=== PATIENT | female | born 1980 | race Caucasian/White ===

== ENCOUNTER 2017-10-17 19:33 | Emergency (ER) | payer OTHER ==
[~2017-10-17] VITALS: Ht 170.2 cm; Wt 78.0 kg
[2017-10-17 19:36] VITALS: TEMP 36.9; Ht 170.2 cm; Wt 78.0 kg
[2017-10-17] MEDS ORDERED: RANITIDINE HCL 150 MG TAB PO STA (19:40)
--- NOTE | 2017-10-17 19:48 | EMERGENCY ROOM VISIT NOTE ---
History Report prepared by Sole: Jerzy Weller Under the Supervision of: Dr. Lalo Bragg M.D. First contact with patient: 19:35 Chief Complaint: ALLERGIC REACTION Stated Complaint: Allergic reaction after MRI injection Nursing Triage Summary: pt had MRI with contrast at 1900 today, itching and rash noted generalized. History of Present Illness The patient is a 37 year old female who presents to the Emergency Room following a allergic reaction that occurred roughly 30 minutes prior to arrival. The patient states that she was here in the hospital this evening for a MRI. The patient has had a number of MRI's in the past to evaluate her Neuroendocrine Cancer. Her MRI today was screening her kidneys and pancreas. She believes that the contrast that was used was different than what she has had in the past because she did not experience the usual metallic taste, respiratory trouble, or "peeing pants" sensation that she experienced commonly in the past. Shortly after received the contrast she began to break out in hives and get itchy. She is still currently itching and has hives across her back. The patient notes that she does note tolerate Benadryl well. She denies any shortness of breath and has no further complaints at this time. 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 Review of Systems See HPI for pertinent positives & negatives. A total of 10 systems reviewed and were otherwise negative. Past Medical & Surgical Medical Problems: (1) Cancer Family History No pertinent family history recorded. Social History Smoking Status: Never Smoker Smokeless Tobacco Use: No Drug Use: none Current/Historical Medications Scheduled Acyclovir (Acyclovir), 200 MG PO DAILY Montelukast Sodium (Singulair), 10 MG PO DAILY Prednisone (Prednisone), 2 TAB PO DAILY Ranitidine (Zantac), 150 MG PO BID Scheduled PRN Fluticasone Prop/Salmeterol (Advair Diskus 500-50 Mcg/Dose), 1 DOSE INH DIRECTED PRN for Shortness of Breath Allergies Coded Allergies: Cephalexin (Verified Allergy, Severe, ANAPHYLAXIS, 10/17/17) Diphenhydramine (Verified Allergy, Intermediate, SEE COMMENT, 10/17/17) PT STATES "WHEN I TOOK BENADRYL, AT NIGHT, EMPTIED REFRIGERATOR AND LINED UP CONTENTS ON FLOOR, ALSO TOOK EVERYTHING OUT OF CAR AND LINED UP ON SIDE WALK". PT HAS NO MEMORY OF DOING THIS. Gadobutrol (Verified Allergy, Mild, HIVES, 10/17/17) Physical Exam Vital Signs Date Time Temp Pulse Resp B/P (MAP) Pulse Ox O2 Delivery O2 Flow Rate FiO2 10/17/17 21:02 64 16 117/74 98 10/17/17 19:36 36.9 70 22 148/92 98 Room Air 10/17/17 19:34 98 Room Air Physical Exam GENERAL: Patient is in no acute distress. HEENT: No acute trauma, normocephalic atraumatic, mucous membranes moist, no nasal congestion, no scleral icterus. There is no uvular edema. NECK: No stridor, no adenopathy, no meningismus, trachea is midline. LUNGS: Clear to auscultation bilaterally, no wheeze, no rhonchi, breath sounds equal. HEART: Without murmurs gallops or rubs, regular rate and rhythm. ABDOMEN: Soft, nontender, bowel sounds positive, no hernias, no peritonitis. EXTREMITIES: No cyanosis or edema, full range of motion of all the joints without pain or difficulty, no signs for acute trauma. NEUROLOGIC: Oriented x 3, no acute motor or sensory deficits, no focal weakness. SKIN: There is no Jaundice. There are erythematous raised patchy lesions consistent with urticaria across her body. She is itching. Medical Decision & Procedures Medications Administered Medications (Trade) Dose Ordered Sig/Cleve Route Start Time Stop Time Status Last Admin Dose Admin Ranitidine HCl (zANTac TAB) 150 mg NOW STAT PO 10/17/17 19:40 10/17/17 19:42 DC 10/17/17 19:47 150 MG Prednisone (PredniSONE TAB) 60 mg NOW STAT PO 10/17/17 19:40 10/17/17 19:42 DC 10/17/17 19:46 60 MG ED Course 1937: The patient was evaluated in room A10. A complete history and physical exam was performed. 1939: Ordered Prednisone 60 mg PO, zANTac TAB 150 mg PO. 2046: Reevaluated the patient. Discussed results and discharge instructions: She verbalized understanding and agreement. The patient is ready for discharge. Medical Decision Differential Diagnosis includes; Hives, acute allergic reaction, uvular edema, wheezing, and, anaphylaxis. The patient presents with hives after receiving MRI dye. She has received this type of dye in the past without incident. She is not short of breath, she has no throat closing sensation. She states that she cannot tolerate Benadryl. The patient was given oral Zantac and oral prednisone. She was watched for some time, her hives resolved. She felt improved and was asking for discharge. I do think this is reasonable. I will discharge her with a few days of Zantac and prednisone. If she has any worsening of her situation, she will return. Medication Reconcilliation Current Medication List: was personally reviewed by me Blood Pressure Screening Patient's blood pressure: Normal blood pressure Blood pressure disposition: Did not require urgent referral Impression Primary Impression: Hives Additional Impression: Allergic reaction Scribe Attestation The scribe's documentation has been prepared under my direction and personally reviewed by me in its entirety. I confirm that the note above accurately reflects all work, treatment, procedures, and medical decision making performed by me. Departure Information Dispostion Home / Self-Care Prescriptions Prednisone (Prednisone) 20 Mg Tab 2 TAB PO DAILY for 3 Days, #6 TAB Prov: Lalo Bragg M.D. 10/17/17 Ranitidine (Zantac) 150 Mg Tab 150 MG PO BID for 3 Days, #6 TAB Prov: Lalo Bragg M.D. 10/17/17 Referrals No Doctor, Assigned (PCP) Forms HOME CARE DOCUMENTATION FORM, IMPORTANT VISIT INFORMATION Patient Instructions My [facility] Additional Instructions zantac 2x per day for 3 days prednisone daily for 3 days return for any worsening symptoms as we discussed Problem Qualifiers
[2017-10-17] MEDS ORDERED: ADVIN50050 INH (20:10)
[2017-10-17] MEDS ORDERED: MONT1TAB3 PO (20:10)
[2017-10-17] MEDS ORDERED: ACYC-56 PO (20:10)
[2017-10-17] MEDS ORDERED: ZNTT/150 PO (20:51)
[2017-10-17] MEDS ORDERED: PRED20TA PO (20:51)
[2017-10-17 21:02] VITALS: BP 117/74; PULSE 64; O2SAT 98
== END 2017-10-17 21:03 | disposition home or self-care (01) ==
LOC: EDBD 19:33 → C.EDA 19:34
DX: T78.40XA Allergy, unspecified, initial encounter (principal); Z91.041 Radiographic dye allergy status; Z88.1 Allergy status to other antibiotic agents; Z88.6 Allergy status to analgesic agent

== ENCOUNTER → 2017-10-17 | Outpatient (CLI) | payer OTHER ==
[~2017-10-17] MED LIST: ACYC-56 PO; ADVIN50050 INH; GADAVIST IV PRN; MONT1TAB3 PO; PRED20TA PO; RANI150T85 PO
--- NOTE | 2017-10-19 14:43 | DIAGNOSTIC IMAGING REPORT ---
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 COMPARISON STUDY: No priors.. TECHNIQUE: MRI of the abdomen is performed transverse T1 and T2-weighted sequences in the axial and coronal planes. Contrast enhanced sequences were acquired following the IV administration of 6.5 cc of Gadavist. The patient developed hives following the injection and was sent to the emergency department for further assessment.. Subtraction imaging was performed. MRCP images with 3-D reconstructions were obtained and assessed. FINDINGS: Lower chest: No pleural effusion is identified. The heart is normal in size. Liver: The liver is normal in size, contour, and signal intensity. No intrahepatic biliary ductal dilatation is seen. The hepatic veins and portal veins are patent. No enhancing liver lesions identified. Gallbladder: The gallbladder is normal in appearance. No gallstones are identified. The common bile duct is normal in caliber and measures up to 4 mm. No filling defects are identified to suggest choledocholithiasis. The pancreatic duct is normal in caliber. Spleen: Normal in size and signal intensity. Pancreas: The pancreas is normal in size. An 8 mm hypervascular nodule is suggested in the pancreatic head on axial image #55 of the arterial phase series. This may be T1 hypointense. This was not well visualized on the additional postcontrast sequences with the T2-weighted sequences. No additional pancreatic lesion is identified. Adrenal glands: Unremarkable. Kidneys: The kidneys are normal in size and without hydronephrosis. The kidneys enhance and excrete symmetrically. Abdominal aorta: Normal in course and caliber. Bowel: Visualized portions of the small bowel and colon show no evidence of obstruction. Moderate fecal retention is noted in the right colon. Peritoneum: There is no abdominal ascites. Lymphadenopathy: None. Skeletal structures: Visualized skeletal structures times are normal marrow signal intensity. IMPRESSION: 1. An 8 mm arterially hypervascular nodule is suggested in the head of the pancreas. Correlation with the patient's clinical history and any prior imaging studies will be required. 2. No additional hypervascular lesions are identified in the pancreas or liver. 3. No enhancing renal lesion is seen. 4. Moderate colonic fecal retention. Electronically signed by: Lalo Leonard M.D. 10/19/2017 2:42 PM Dictated Date/Time: 10/19/2017 2:31 PM
== END | disposition home or self-care (01) ==
LOC: C.MRI 18:25
PROVIDERS: ATTEND Family Medicine
DX: C7A.8 Other malignant neuroendocrine tumors (principal); Z15.09 Genetic susceptibility to other malignant neoplasm; K59.00 Constipation, unspecified

== ENCOUNTER → 2017-11-09 | Outpatient (CLI) | payer OTHER ==
[~2017-11-09] MED LIST changes: -GADAVIST IV PRN; -PRED20TA PO; -RANI150T85 PO
== END | disposition home or self-care (01) ==
LOC: C.LAB 10:25
PROVIDERS: ATTEND Internal Medicine Gastroenterology
DX: K86.9 Disease of pancreas, unspecified (principal)

== ENCOUNTER 2018-09-16 05:35 | Observation (INO) ==
--- NOTE | 2018-08-21 08:36 | Anesthesiology Consultation ---
Date of Service August 21, 2018 Assessment & Plan (1) Encounter for pre-operative examination: Chart Review Chart Review: Acceptable Risk for Surgery and Patient seen in Pre Admission Testing Consults Requested none Teaching & Discussion Pre-Anesthesia Teaching/Discussion Notes: Instructed NPO after midnight before surgery, except medications with 15 cc of water. Medication instructions provided according to the PAT guidelines. History Surgery Operation Date: 09/16/18 07:30 Proposed Procedures p Robotic Total Laparoscopic Hysterectomy - Tyler Lux MD, FACOG Height/Weight Height: 5 ft 2 in Weight: 65.8 kg Allergies Allergy/AdvReac Type Severity Reaction Status Date / Time cephalexin Allergy Severe ANAPHYLAXIS Verified 08/19/18 08:30 diphenhydramine Allergy Intermediate SEE COMMENT Verified 08/19/18 08:30 gadobutrol Allergy Mild HIVES Verified 08/19/18 08:30 Medications Home Medications Medication Instructions Recorded Confirmed Last Taken acyclovir 200 mg PO QAM 08/19/18 08/19/18 Unknown fluticasone-salmeterol [Advair 1 inh INHALATION QAM 08/19/18 08/19/18 Unknown Diskus] montelukast [Singulair] 10 mg PO PM 08/19/18 08/19/18 Unknown omeprazole magnesium [Prilosec OTC] 40 mg PO QAM 08/21/18 08/21/18 Unknown Past Medical History Medical History Abnormal endoscopy of upper gastrointestinal tract Asthma Asthma Barretts esophagus Pancreatic cancer Currently monitoring. Dx in 2014. David's syndrome LEIOMYOMA Past Surgical History Surgical History H/O myomectomy History of mandibular surgery Hx of knee surgery LEFT - SCOPE Hx of lumpectomy x 3 (LEFT BREAST) Past Anesthesia History No Hx of Anesthesia Complications and No Family Hx of Anesthesia Complications Does better if she is brought out quickly. Tends to get aggressive as she is waking up. Tends to get nausea, vomiting, chills. Staff always ends up bringing family member back to PACU to help settle her down. History of PONV Yes (Gets nausea, vomiting, chills. ) Motion Sickness Screening History of Motion Sickness: Yes Social History Smoking Status: Former smoker tobacco type: cigarettes Do You Dip or Chew Tobacco: No Smoking End Date: 3145-9887. 1 cigarette per day. Hx Alcohol Use: Yes Alcohol type: wine alcohol intake frequency: holidays/special occasions only Hx Substance Use: No substance use type: does not use Exercise / Class Metabolic Activity II 4-5 Yardwork/Stairs/Walk up hill (2 hours of competitive crossfit per day. Able to climb FOS. Denies CP or SOB. ) Review of Systems Patient denies chest pain, shortness of breath (unless having difficulty with asthma), dyspnea on exertion, joint pain, reflux, cough, wheezing (only when asthma exacerbations), palpitations. Physical Exam Vital Signs BP: 115/85 P: 72 R: 16 T: 98.4 SPO2: 95% on RA ENMT Thyromental Distance: < 3.5 Finger Breadths (3) Mallampati Class: III Neck normal visual inspection and trachea midline; neck extension not limited Respiratory normal respiratory effort Auscultation: lungs clear to auscultation bilaterally Cardiovascular Rate/Rhythm: regular rate and regular rhythm Heart Sounds: no murmur Vessels: no carotid bruit Neurologic moves all extremities Psychiatric Orientation: alert and oriented x 3 Testing Laboratory Results 08/21/18 09:11 08/21/18 09:11 Blood Type O Positive 08/21/18 09:11 Antibody Screen NEGATIVE 08/21/18 09:11
--- NOTE | 2018-08-21 08:38 | PAT Medication Instructions ---
Medication Instructions Date of Service August 21, 2018 Home Medications acyclovir 200 mg PO QAM fluticasone-salmeterol [Advair] 1 inh INHALATION QAM montelukast [Singulair] 10 mg PO PM Prilosec 40mg PO QAM Take morning of surgery With a small sip of water, OTHERWISE NOTHING TO EAT OR DRINK AFTER MIDNIGHT: acyclovir 200 mg PO QAM fluticasone-salmeterol [Advair] 1 inh INHALATION QAM Prilosec 40mg PO QAM Take evening before surgery montelukast [Singulair] 10 mg PO PM Other Notes If you have any questions please call us at [phone] or [phone] or [phone] or [phone]
[2018-08-21 10:00] LABS: Basophils # (auto) 0.02 K/uL (0-0.2); Basophils % (auto) 0.2 %; Eosinophils # (auto) 0.21 K/uL (0-0.5); Eosinophils % (auto) 2.3 %; Hematocrit (blood only) 45.2 % (37-47); Hemoglobin 15.9 g/dL (12.0-16.0); Immature Granulocytes # (auto) 0.02 K/uL (0.00-0.02); Immature Granulocytes % (auto) 0.2 %; Lymphocytes # (auto) 2.34 K/uL (1.2-3.4); Lymphocytes % (auto) 25.4 %; Mean Corpuscular Hgb Conc 35.2 g/dL (32-36); Mean Corpuscular Volume 91.7 fL (80-100); Mean Platelet Volume 10.3 fL (7.4-10.4); Monocytes # (auto) 0.89 K/uL (0.11-0.59); Monocytes % (auto) 9.6 %; Neutrophils # (auto) 5.75 K/uL (1.4-6.5); Neutrophils % (auto) 62.3 %; Platelet Count 253 K/uL (130-400); RDW Coefficient of Variation 13.1 % (11.5-14.5); RDW Standard Deviation 43.7 fL (36.4-46.3); Red Blood Count 4.93 M/uL (4.2-5.4); White Blood Count 9.23 K/uL (4.8-10.8)
[2018-08-21 10:16] LABS: BUN Creatinine Ratio 24.3 (10-20); Calcium 9.2 mg/dl (8.5-10.1); Creatinine Clr Calc Pharmacy 72.9 ml/min; Est GFR (African American) 89.3; Est GFR (Non-African American) 77.1; Potassium 4.2 mmol/L (3.5-5.1)
[2018-09-16] MEDS ORDERED: CLINDAMYCIN 600 MG/54 ML BAG IV SCH (06:00)
[2018-09-16] MEDS ORDERED: GENTAMICIN SULFATE 80 MG in DEXTROSE 5% 100 ML IV SCH (06:00)
[2018-09-16] MEDS ORDERED: LR 15ML/HR IV SCH (06:00)
[2018-09-16] MEDS ORDERED: LACTATED RINGER'S 1,000 ML IV SCH ×2 (06:00→10:15)
[2018-09-16] MEDS ORDERED: fentaNYL citrate 100 MCG/2 ML VIAL ONE ×8 (06:30→10:06)
[2018-09-16] MEDS ORDERED: MIDAZOLAM HCL 1 MG/ML 2ML VIAL ONE (06:30)
[2018-09-16] MEDS ORDERED: BUPIVACAINE 0.5 % 5 MG/1 ML MPF 30ML VIAL ONE (06:44)
--- NOTE | 2018-09-16 06:53 | History & Physical Bridge Note ---
Date of Service September 16, 2018 History & Physical Bridge Note I have examined the patient, reviewed the History & Physical and in the interval since the performance of the History & Physical I have noted the following changes of clinical significance: no changes noted
[2018-09-16] MEDS ORDERED: ALBUTEROL 0.083% NEBU SOLN 3 ML VIAL NEB STA (06:54)
[2018-09-16] MEDS ORDERED: PROMETHAZINE HCL 12.5 MG in SODIUM CHLORIDE 0.9% 50 ML IV PRN ×2 (07:02→10:06)
[2018-09-16] MEDS ORDERED: ONDANSETRON INJ 2 MG/ML 2 ML VIAL IV PRN ×2 (07:02→10:06)
[2018-09-16] MEDS ORDERED: ePHEDrine sulfate 50 MG/ML AMP IV PRN (07:02)
[2018-09-16] MEDS ORDERED: ATROPINE SULFATE 0.1 MG/ML 10ML SYR IV PRN (07:02)
[2018-09-16] MEDS ORDERED: NALOXONE HCL 0.4 MG/1 ML VIAL/CARP IV PRN (07:02)
[2018-09-16] MEDS ORDERED: FLUMAZENIL 0.1 MG/1 ML 10 ML VIAL IV PRN (07:02)
[2018-09-16] MEDS ORDERED: HYDROmorphone INJ 2 MG/ML SYR/VIAL ONE ×2 (07:48→10:03)
[2018-09-16] MEDS ORDERED: raNITIdine HCl 25 MG/ML VIAL ONE (07:49)
[2018-09-16] MEDS ORDERED: NEOSTIGMINE METHYLSULFATE 5 MG/5 ML SYR ONE (07:49)
[2018-09-16] MEDS ORDERED: GLYCOPYRROLATE 0.2 MG/ML VIAL ONE (07:49)
[2018-09-16] MEDS ORDERED: METOCLOPRAMIDE HCL INJ 5 MG/ML 2 ML VIAL ONE (07:49)
[2018-09-16] MEDS ORDERED: ONDANSETRON INJ 2 MG/ML 2 ML VIAL ONE (07:49)
[2018-09-16] MEDS ORDERED: LARYING-O-JET KIT (LTA) ONE (07:49)
[2018-09-16] MEDS ORDERED: PROPOFOL IV EMULSION 10 MG/ML 20 ML VIAL IV ONE (07:49)
[2018-09-16] MEDS ORDERED: LIDOCAINE HCL 2% 2 ML VIAL/AMP(20MG/ML) INFIL ONE (07:49)
[2018-09-16] MEDS ORDERED: ROCURONIUM BROMIDE 10 MG/ML 5 ML VIAL ONE (07:49)
[2018-09-16] MEDS ORDERED: DEXAMETHASONE SOD INJ 4 MG/ML VIAL ONE (07:49)
[2018-09-16] MEDS ORDERED: GENTAMICIN SULFATE 40 MG/ML 2 ML VIAL ONE (07:58)
[2018-09-16] MEDS ORDERED: GENTAMICIN SULFATE 80 MG in DEXTROSE 5% 100 ML IV ONE (08:30)
[2018-09-16] MEDS ORDERED: TISSEEL FIBRIN SEALANT 4ML TOP ONE (09:24)
[2018-09-16] MEDS ORDERED: MAGNESIUM HYDROXIDE SUSP 30 ML UDC PO PRN (10:06)
[2018-09-16] MEDS ORDERED: MEPERIDINE HCL 50 MG/ML CARP IV PRN (10:06)
[2018-09-16] MEDS ORDERED: KETOROLAC 30 MG/ML VIAL IV PRN (10:06)
[2018-09-16] MEDS ORDERED: IBUPROFEN 600 MG TAB PO PRN (10:06)
[2018-09-16] MEDS ORDERED: OXYCODONE/ACETAMINOPHEN 5mg/325mg TAB PO PRN ×2 (10:06)
[2018-09-16] MEDS ORDERED: SIMETHICONE 80 MG CHEW PO PRN (10:06)
[2018-09-16] MEDS ORDERED: BISACODYL 10 MG SUPP PR PRN (10:06)
[2018-09-16] MEDS ORDERED: ACETAMINOPHEN 325 MG TAB PO PRN (10:06)
[2018-09-16] MEDS ORDERED: ZOLPIDEM TARTRATE 5 MG TAB PO PRN (10:06)
--- NOTE | 2018-09-16 10:10 | Post Operative Brief Note ---
Immediate Post Op Note v1 Date of Surgery September 16, 2018 Pre & Post Diagnosis Operation Date: 09/16/18 08:30 Pre-Op Diagnosis: Leiomyoma, Pelvic Pain Post-Op Diagnosis: Leiomyoma, Pelvic Pain Procedure Operation Date: 09/16/18 08:30 Actual Procedures p Robotic Total Laparoscopic Hysterectomy, bilateral salpingectomy with use of Davinci, cystoscopy(Not Applicable) - Tyler Lux MD, FACOG Surgeon Tyler Lux MD, FACOG Supervisor Phosphoric Acid none Estimated Blood Loss 20 Findings Consistent with Post-Op Diagnosis Drains Newberry Catheter
[2018-09-16] MEDS ORDERED: KETOROLAC 30 MG/ML VIAL ONE (10:29)
[2018-09-16] MEDS ORDERED: ePHEDrine sulfate 50 MG/ML SYR ONE (10:29)
[2018-09-16] MEDS: HYDROmorphone INJ 1 MG/ML SYRINGE IV PRN ×4 (10:54→11:09)
--- NOTE | 2018-09-16 11:20 | Anesthesiology Progress Note ---
Date of Service September 16, 2018 Anesthesia Post Procedure Vital Signs Vital Signs: Temp Pulse Pulse Resp BP Pulse Ox 09/16/18 11:10 70 12 149/88 H 98 09/16/18 11:00 67 12 143/80 H 94 09/16/18 10:50 67 17 138/78 97 09/16/18 10:40 56 L 16 140/81 98 09/16/18 10:32 36.6 C 71 12 134/73 98 09/16/18 06:54 65 14 98 09/16/18 06:01 36.8 C 66 18 138/89 97 Pain Intensity Abdomen: Pain Intensity: 4 Notes Mental Status: alert / awake / arousable Patient Amnestic to Procedure: Yes Nausea / Vomiting: adequately controlled Pain: adequately controlled Airway Patency, RR, SpO2: stable & adequate BP & HR: stable & adequate Hydration State: stable & adequate Anesthetic Complications: no major complications apparent
[2018-09-16] MEDS ORDERED: INFLUENZA ADMINISTRATION CHARGE ONE (14:00)
[2018-09-16] MEDS ORDERED: INFLUENZA VIRUS QUAD VACCINE 0.5 ML SYR IM ONE (14:00)
--- NOTE | 2018-09-16 17:03 | Operative Report ---
DATE OF OPERATION: 09/16/2018 PREOPERATIVE DIAGNOSES: Leiomyoma, pelvic pain, enlarged uterus. POSTOPERATIVE DIAGNOSES: Leiomyoma, pelvic pain, enlarged uterus. PROCEDURE: Da Christopher robotically assisted total laparoscopic hysterectomy of uterus greater than 250 g, bilateral salpingectomy, preservation of ovaries, cystoscopy. SURGEON: Dr. Lux. ACCOUNTS RECEIVABLE ANALYST: None. ANESTHETIC: General. COMPLICATIONS: None. ESTIMATED BLOOD LOSS: 20 mL SPECIMENS: Uterus, cervix and bilateral fallopian tubes and Mirena IUD. DRAINS: Newberry catheter. DISPOSITION: Recovery Room. DESCRIPTION OF PROCEDURE: The patient was given a general anesthetic, prepped and draped in dorsolithotomy position. IV antibiotics started. The patient had a known IUD in place. VCare was placed into the uterus in the usual fashion and as mentioned, Newberry catheter in her bladder. Supraumbilical incision was made with scalpel. Using Gagan technique, we did a cut down, dissecting through subcutaneous fat to the fascia, splitting the rectus muscles and entering the peritoneal cavity without difficulty. Blunt-tipped Gagan trocar placed and then CO2 gas to insufflate the abdomen. Findings: Upper abdomen normal, no sign of visceral organ injury. Pelvis revealed multiple fibroids, all appeared benign. Adnexa appeared bilaterally normal. There were some adhesions of the omentum to the uterus where the prior myomectomy was, but these were largely flimsy. Three robotic ports placed, 2 on the right side of the patient, 1 in the left and a left upper quadrant bladeless accessory port. Robot docked. Arm #1 was monopolar nata, arm #2 was a [place] bipolar, arm #3 initially was ProGrasp and then became robotic single tooth tenaculum later. Deep Trendelenburg position had been obtained. We first lysed away the flimsy adhesions. Staying close to the uterus, these were easily to lyse away. They were on the fundus of the uterus and then also on the left side of the uterus. We identified the ureter on the left side and the right side. These followed a normal course. I removed the fallopian tubes first on the left side, then the right side. These were removed through the accessory port. We then coagulated the blood supply distal to the left ovary with the bipolar [place], cut this with the monopolar nata. We were well away from the left ureter. Same process with the round ligament. Uterine vessels were then skeletonized and bladder flap sharply dissected away. We were able to coagulate the uterine artery and vein on the left side and we were well away from the left ureter. At this stage, we fully dissected the bladder flap away as much as we could. Same process was continued on the right side. There was an anterior right fibroid, but we used a tenaculum to elevate and pull this away from the field, so I was able to identify the bladder flap, the uterine vessels on the right side and coagulate these well away from the right ureter. Once this was done, I was able to make the colpotomy with the monopolar nata and then full colpotomy was completed. Sutures were cut off of the VCare. Note, the IUD was still in the specimen. Uterus was then placed in the left upper quadrant for the moment to allow us to repair the cuff. Instrument exchanged. Arm #1 became the tigist needle skip load driver, arm #2 became the CloudSlides grasper. A 12 inch, 2-0, 90-day V-Loc suture passed through the accessory port. Cuff closed from left to right, back right to left. This was done for at least 1 cm full thickness bites of vaginal mucosa. A sponge and a glove had been placed for maintenance of pneumoperitoneum. This was removed and the seal was airtight. Suture was cut so there was no tail and needle removed from the accessory port. After generous irrigation and suction, we then applied Tisseel 4 mL to the area for hemostasis. Cystoscopy was performed by removing the Newberry catheter. Methylene blue had been given prior. There were good strong jets of blue dye from the left and right ureter openings. No sign of injury to the bladder was noted. New Newberry catheter placed. We regowned and gloved and then used a 5 mm laparoscope through the robotic incisions after undocking the robot. Using a 15 mm port in the umbilicus, this was placed under direct visualization and the large surgical bag was then placed. We grasped the specimen with a nontraumatic grasper and placed this in the bag. We then pulled the bag up through the umbilical incision and using an Jean-Claude O retractor using the ExCITE technique, we removed the specimen entirely. Using this method, there was no spillage and no hole was poked in the bag. Once the entire specimen including the IUD were removed, the bag was removed as well. We did visualize afterwards. The hemostasis was excellent. There was no sign of visceral organ injury. Incisions all injected with 0.5% Marcaine. Fascia closed carefully with 0 Vicryl in the umbilical and left upper quadrant incisions, 4-0 subcuticular Monocryl closures and Dermabond applied. No vaginal bleeding noted at the end of procedure. Urine clear at the end of the procedure. Sponge and instrument counts correct. I attest to the content of the Intraoperative Record and any orders documented therein. Any exception s are noted below.
[2018-09-16] MEDS ORDERED: ALBUTEROL 0.5% NEB SOLN 2.5 MG/0.5 ML VIAL NEB SCH (20:00)
[2018-09-16] MEDS ORDERED: DOCUSATE SODIUM 100 MG CAP PO SCH (21:00)
--- NOTE | 2018-09-23 09:51 | Discharge Summary ---
Lola had a hysterectomy on 09/16/2018. This is for an enlarged uterus. It was done laparoscopically with da Christopher robotic assistance. Her course in the hospital was uncomplicated. She was discharged a few hours after surgery. At that time, she was ambulating well, tolerating an oral diet, voiding well, was passing flatus, and had no extremity pain. She had no bleeding. PHYSICAL EXAMINATION: VITAL SIGNS: Stable. She is afebrile. EXTREMITIES: Negative for tenderness. IMPRESSION AND PLAN: Postop a few hours from laparoscopic hysterectomy. Discharged home. Instructions reviewed.
== END 2018-09-16 17:05 | disposition home health service (06) ==
LOC: 4N 05:35 → ASU 05:35